=== PATIENT | female | born 1990 | race Caucasian/White ===

== ENCOUNTER 2022-12-10 16:04 | Emergency (ER) | payer SELFPAY | END 2022-12-10 17:10 | disposition home or self-care (01) | LOC: NAV ERS 16:04 | DX: O99.511 Diseases of the respiratory system complicating pregnancy, first trimester (principal); J32.0 Chronic maxillary sinusitis; Z3A.11 11 weeks gestation of pregnancy; E03.9 Hypothyroidism, unspecified; Z79.899 Other long term (current) drug therapy | CPT/HCPCS: 99283 ==